=== PATIENT | female | born 1975 | race Two or more races ===

== ENCOUNTER 2024-06-06 02:32 | Emergency (ER) | payer OTHER ==
[~2024-06-06] VITALS: Ht 157.5 cm; Wt 83.9 kg
== END 2024-06-06 05:19 | disposition home or self-care (01) ==
LOC: ER 02:34
DX: N93.8 Other specified abnormal uterine and vaginal bleeding (principal); N80.8 Other endometriosis; D25.9 Leiomyoma of uterus, unspecified; N83.299 Other ovarian cyst, unspecified side

== ENCOUNTER 2024-07-28 11:45 | Inpatient (IN) | payer OTHER ==
[~2024-07-28] VITALS: Ht 157.5 cm; Wt 82.6 kg
[2024-07-28] MEDS ORDERED: NORETHIND-ETH1 EAC1 (13:43)
[2024-07-28] MEDS ORDERED: FOLIC ACID (13:44)
[2024-07-28] MEDS ORDERED: VITAMIN B6 (13:44)
[2024-07-28] MEDS ORDERED: [UNRECOGNIZED DRUG - OTHER] (13:44)
[2024-07-28 13:46] VITALS: BP 129/77
[2024-07-28 15:48] LABS: RH POSITIVE
[2024-08-05] MEDS ORDERED: VISTASEAL DUAL APPICATOR 1 EACH APPL TOP ONE ×2 (08:36→09:00)
[2024-08-05] MEDS ORDERED: THROMBIN,HU/FIBRINOGEN/CALCIUM 10 ML SYRINGE TOP ONE ×2 (08:37→09:00)
[2024-08-05] MEDS ORDERED: BUPIVACAINE HCL/PF 0.25% 30ML VIAL InF ONE (08:45)
[2024-08-05] MEDS ORDERED: CEFTRIAXONE SODIUM 2,000 MG VIAL IV SCH (08:45)
[2024-08-05] MEDS ORDERED: METRONIDAZOLE/SODIUM CHLORIDE 500 MG/100 ML PIGGYBACK IV ONE (08:45)
[2024-08-05] MEDS ORDERED: LIDOCAINE HCL 2%/EPINEPHRINE 20ML VIAL IJ ONE (08:45)
[2024-08-05] MEDS ORDERED: POVIDONE-IODINE 118 ML BOTT TOP ONE (08:45)
[2024-08-05] MEDS ORDERED: RINGERS SOLUTION,LACTATED 1,000 ML IV SCH (11:08)
[2024-08-05] MEDS ORDERED: GABAPENTIN 100 MG CAPSULE PO SCH (11:10)
[2024-08-05] MEDS ORDERED: MEPERIDINE HCL 25 MG/ML AMPUL IV ONE (11:10)
[2024-08-05] MEDS ORDERED: CELECOXIB 200 MG CAPSULE PO STA (11:10)
[2024-08-05] MEDS ORDERED: CELECOXIB 200 MG CAPSULE PO ONE (11:50)
[2024-08-05] MEDS ORDERED: CEFAZOLIN SODIUM 1,000 MG VIAL ONE (11:51)
[2024-08-05] MEDS ORDERED: ONDANSETRON HCL 2 MG/ML VIAL IM SCH (12:00)
[2024-08-05] MEDS ORDERED: ACETAMINOPHEN 325 MG TABLET PO SCH (12:00)
[2024-08-05] MEDS ORDERED: CEFAZOLIN SODIUM 1,000 MG VIAL IV SCH (13:00)
[2024-08-05 13:52] LABS: HEMATOCRIT 41.9 % (36.0-45.00); HEMOGLOBIN 13.3 g/dL (12.0-15.00); MEAN CELL VOLUME 94.1 fL (80.00-100.00); MEAN CORPUSCULAR HEMOGLOBIN 29.9 pg (27.00-32.0); MEAN CORPUSCULAR HGB CONC 31.7 g/dl (32.0-36.0); PLATELET COUNT 286 K/uL (150-450); RED BLOOD COUNT 4.45 M/uL (4.00-6.00); RED CELL DISTRIBUTION WIDTH 13.4 % (11.5-14.5)
[2024-08-05 14:00] VITALS: BP 129/77
[2024-08-05 14:39] LABS: CALCIUM 9.1 mg/dL (8.5-10.1); CREATININE SERUM 0.76 mg/dL (0.55-1.02); GFR 81.57; POTASSIUM 4.23 mEq/L (3.5-5.1)
[2024-08-05 16:06] VITALS: BP 128/79
[2024-08-05 17:43] LABS: HEMATOCRIT 40.4 % (36.0-45.00); HEMOGLOBIN 13.1 g/dL (12.0-15.00); MEAN CELL VOLUME 92.5 fL (80.00-100.00); MEAN CORPUSCULAR HEMOGLOBIN 30.1 pg (27.00-32.0); MEAN CORPUSCULAR HGB CONC 32.5 g/dl (32.0-36.0); PLATELET COUNT 335 K/uL (150-450); RED BLOOD COUNT 4.36 M/uL (4.00-6.00); RED CELL DISTRIBUTION WIDTH 13.4 % (11.5-14.5)
[2024-08-05 20:00] VITALS: BP 135/76
[2024-08-06] VITALS: BP 130/64
[2024-08-06 06:38] LABS: HEMATOCRIT 39.3 % (36.0-45.00); HEMOGLOBIN 12.7 g/dL (12.0-15.00); MEAN CELL VOLUME 92.8 fL (80.00-100.00); MEAN CORPUSCULAR HGB CONC 32.3 g/dl (32.0-36.0); PLATELET COUNT 262 K/uL (150-450); RED BLOOD COUNT 4.24 M/uL (4.00-6.00); RED CELL DISTRIBUTION WIDTH 13.2 % (11.5-14.5)
[2024-08-06 06:55] LABS: CREATININE SERUM 0.67 mg/dL (0.55-1.02); GFR 94.34; POTASSIUM 4.23 mEq/L (3.5-5.1)
[2024-08-06 08:15] VITALS: BP 134/75
== END 2024-08-06 08:46 | disposition home or self-care (01) | DRG 742 ==
LOC: O/R 08-05 05:20 → SURH 08-05 07:00 → OB/GYN 08-05 13:21
PROVIDERS: Obstetrics & Gynecology Gynecology; Surgery; Urology; ADMIT Student in an Organized Health Care Education/Training Program; ATTEND Student in an Organized Health Care Education/Training Program
PROC: 0DNW4ZZ Release Peritoneum, Percutaneous Endoscopic Approach (ICD-10-PCS; 2024-08-05)
PROC: 0DTJ4ZZ Resection of Appendix, Percutaneous Endoscopic Approach (ICD-10-PCS; 2024-08-05)
PROC: 0T788DZ Dilation of Bilateral Ureters with Intraluminal Device, Via Natural or Artificial Opening Endoscopic (ICD-10-PCS; 2024-08-05)
PROC: 0DJD8ZZ Inspection of Lower Intestinal Tract, Via Natural or Artificial Opening Endoscopic (ICD-10-PCS; 2024-08-05)
PROC: 0UT94ZZ Resection of Uterus, Percutaneous Endoscopic Approach (ICD-10-PCS; principal; 2024-08-05 07:00)
PROC: 0UT74ZZ Resection of Bilateral Fallopian Tubes, Percutaneous Endoscopic Approach (ICD-10-PCS; 2024-08-05 07:00)
PROC: 0UQG4ZZ Repair Vagina, Percutaneous Endoscopic Approach (ICD-10-PCS; 2024-08-05 07:00)
DX: D25.1 Intramural leiomyoma of uterus (principal); N99.71 Accidental puncture and laceration of a genitourinary system organ or structure during a genitourinary system procedure; D25.2 Subserosal leiomyoma of uterus; N93.8 Other specified abnormal uterine and vaginal bleeding; N94.0 Mittelschmerz; N80.559 Endometriosis of other parts of the colon, unspecified depth; D64.9 Anemia, unspecified

== ENCOUNTER 2024-09-02 13:10 | Inpatient (IN) | payer OTHER ==
[~2024-09-02] VITALS: Ht 157.5 cm; Wt 78.9 kg
[~2024-09-02 13:10] MED LIST: FOLIC ACID; NORETHIND-ETH1 EAC1; VITAMIN B6; [UNRECOGNIZED DRUG - OTHER]
[2024-09-02] MEDS ORDERED: CHLORHEXIDINE GLUCONATE 120 ML BOTTLE TOP ONE ×2 (13:46→14:45)
[2024-09-02] MEDS ORDERED: NITROGLYCERIN 1 INCH OINT..GM. TD ONE ×2 (13:46→14:45)
[2024-09-02] MEDS ORDERED: THROMBIN,HU/FIBRINOGEN/CALCIUM 4 ML SYRINGE TOP ONE ×2 (13:46→14:45)
[2024-09-02] MEDS ORDERED: THROMBIN,HU/FIBRINOGEN/CALCIUM 10 ML SYRINGE TOP ONE (14:45)
[2024-09-02 17:26] LABS: HEMATOCRIT 45.2 % (36.0-45.00); HEMOGLOBIN 15.3 g/dL (12.0-15.00); MEAN CELL VOLUME 87.5 fL (80.00-100.00); MEAN CORPUSCULAR HEMOGLOBIN 29.6 pg (27.00-32.0); MEAN CORPUSCULAR HGB CONC 33.9 g/dl (32.0-36.0); PLATELET COUNT 306 K/uL (150-450); RED BLOOD COUNT 5.17 M/uL (4.00-6.00); RED CELL DISTRIBUTION WIDTH 13.1 % (11.5-14.5)
[2024-09-02 17:35] VITALS: BP 122/76; O2SAT 100
[2024-09-02 17:40] LABS: INR 1.01; PARTIAL THROMBOPLASTIN TIME 30.6 SECONDS (22.0-34.0)
[2024-09-02 17:42] VITALS: BP 122/76
[2024-09-02 17:49] LABS: ALBUMIN 4.5 gm/dL (3.4-5.0); BILIRUBIN TOTAL 0.45 mg/dL (0.3-1.2); CALCIUM 9.9 mg/dL (8.5-10.1); CREATININE SERUM 0.79 mg/dL (0.55-1.02); GFR 78.01; POTASSIUM 4.24 mEq/L (3.5-5.1); TOTAL PROTEIN 8.5 gm/dL (6.4-8.2)
[2024-09-02] MEDS ORDERED: POVIDONE-IODINE 118 ML BOTT TOP ONE (20:12)
[2024-09-02] MEDS ORDERED: RINGERS SOLUTION,LACTATED 1,000 ML IV SCH (20:52)
[2024-09-02] MEDS ORDERED: CELECOXIB 200 MG CAPSULE PO STA (20:53)
[2024-09-02] MEDS ORDERED: ONDANSETRON HCL 2 MG/ML VIAL IV SCH (20:53)
[2024-09-02] MEDS ORDERED: ACETAMINOPHEN 325 MG TABLET PO SCH (20:53)
[2024-09-02] MEDS ORDERED: GABAPENTIN 100 MG CAPSULE PO SCH (20:54)
[2024-09-02] MEDS ORDERED: ONDANSETRON HCL 2 MG/ML VIAL ONE (22:00)
[2024-09-02 22:12] LABS: HEMATOCRIT 41.9 % (36.0-45.00); MEAN CORPUSCULAR HEMOGLOBIN 29.4 pg (27.00-32.0); MEAN CORPUSCULAR HGB CONC 33.4 g/dl (32.0-36.0); PLATELET COUNT 241 K/uL (150-450); RED BLOOD COUNT 4.76 M/uL (4.00-6.00); RED CELL DISTRIBUTION WIDTH 13.3 % (11.5-14.5)
[2024-09-03] MEDS ORDERED: GABAPENTIN 100 MG CAPSULE PO ONE (00:49)
[2024-09-03] MEDS ORDERED: ACETAMINOPHEN 325 MG TABLET PO ONE (00:49)
[2024-09-03 01:21] VITALS: BP 132/68; O2SAT 100
[2024-09-03 07:15] LABS: HEMATOCRIT 41.5 % (36.0-45.00); HEMOGLOBIN 13.5 g/dL (12.0-15.00); MEAN CELL VOLUME 88.9 fL (80.00-100.00); MEAN CORPUSCULAR HEMOGLOBIN 28.8 pg (27.00-32.0); MEAN CORPUSCULAR HGB CONC 32.4 g/dl (32.0-36.0); PLATELET COUNT 243 K/uL (150-450); RED BLOOD COUNT 4.67 M/uL (4.00-6.00); RED CELL DISTRIBUTION WIDTH 12.9 % (11.5-14.5)
[2024-09-03 10:56] VITALS: BP 123/77; O2SAT 98
== END 2024-09-03 09:46 | disposition home or self-care (01) | DRG 700 ==
LOC: ER 13:13 → SEC-K 17:43 → SURH 09-03 00:35
PROVIDERS: General Practice; ADMIT Obstetrics & Gynecology Gynecology; ATTEND Obstetrics & Gynecology Gynecology
PROC: 8E0UXY7 Examination of Female Reproductive System (ICD-10-PCS; 2024-09-02)
PROC: 0UQGXZZ Repair Vagina, External Approach (ICD-10-PCS; principal; 2024-09-02 20:45)
DX: N99.89 Other postprocedural complications and disorders of genitourinary system (principal); N93.9 Abnormal uterine and vaginal bleeding, unspecified